=== PATIENT | female | born 1975 | race Caucasian/White ===

== ENCOUNTER 2017-07-01 13:56 | Observation (INO) | payer OTHER ==
[2017-07-01] MEDS ORDERED: NITROGLYCERIN 0.4 MG/TAB SL ONE (14:29)
[2017-07-01] MEDS ORDERED: ASPIRIN 81 MG CHEWABLE TABLET ONE (14:29)
--- NOTE | 2017-07-01 14:34 | EKG ---
Test Date: 2017-07-01 Test Time: 14:10:57 Helpdesk Technician: SANJEEV MEASUREMENT RESULTS: Intervals: Rate: 87 WI: 104 QRSD: 88 QT: 232 QTc: 279 [place]: P: 43 WI: 104 QRS: 60 T: 196 INTERPRETIVE STATEMENTS: Sinus rhythm with short WI Nonspecific ST and T wave abnormality Abnormal ECG Compared to ECG 08/23/2010 15:35:13 Short WI interval now present ST (T wave) deviation now present Electronically Signed On 07-01-17 14:33:35 CDT by Fredrick Mata
--- NOTE | 2017-07-01 15:00 | RAD REPORT ---
EXAM DESCRIPTION: RAD - Chest Single View - 07/01/2017 2:43 pm CLINICAL HISTORY: Chest pain. COMPARISON: None. FINDINGS: Portable technique limits examination quality. The lungs are grossly clear. The heart is normal in size. No displaced fractures.Sternotomy wires not ed. IMPRESSION: No acute intrathoracic process suspected.
[2017-07-01 15:28] LABS: Protime INR 0.94
[2017-07-01 15:30] LABS: Absolute Lymphocytes (CBC) 2.5 K/uL (0.7-4.9); Absolute Monocytes 0.6 K/uL (0.1-1.3); Absolute Neutrophil 5.7 K/uL (1.8-8.0); Eosinophils % 2.6 % (0-4.4); Hematocrit 38.7 % (36.0-45.0); Lymphocytes % 27.1 % (15.3-44.8); MCH 30.7 pg (27.0-35.0); MPV 7.1 fL (7.6-11.3); Monocytes % 6.2 % (3.3-12.3)
[2017-07-01 15:38] LABS: Potassium 3.5 mEq/L (3.6-5.0)
[2017-07-01 15:44] LABS: Albumin 4.2 g/dL (3.2-5.5); Bilirubin Direct 0.1 mg/dL (0-0.2); Bilirubin Total 0.7 mg/dL (0.3-1.2); Magnesium 1.9 mg/dL (1.8-2.5); Protein, Total 7.4 g/dL (6.0-8.3)
[2017-07-01 15:47] LABS: CKMB Creatine Kinase MB 1.7 ng/ml (0.3-4.0)
--- NOTE | 2017-07-01 15:52 | ER ---
Nurse's Notes [facility] Name: Rosa Maria Smith Age: 41 yrs Sex: Female : 1975 Arrival Date: 07/01/2017 Time: 13:58 Bed 15 Private MD: Maxi Christina Diagnosis: Chest pain, unspecified Presentation: 07/01 14:09 Presenting complaint: Patient states: chest pain since 1130, very heavy, radiating into ch neck and R arm, has a hx of CHF after having her child, and has a slight mitral valve leak. had a stress test done my Dr. Whatley about 1.5 yrs ago. Transition of care: patient was not received from another setting of care. Onset of symptoms was July 01, 2017 at 11:30. Initial Sepsis Screen: Does the patient meet any 2 criteria? No. Patient's initial sepsis screen is negative. Does the patient have a suspected source of infection? No. Patient's initial sepsis screen is negative. Care prior to arrival: None. 14:09 Method Of Arrival: Ambulatory 14:09 Acuity: ANNIE 2 Triage Assessment: 14:15 General: Appears in no apparent distress. comfortable, Behavior is calm, cooperative, ch appropriate for age. Pain: Complains of pain in chest. 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 - Social history:: Smoking status: Patient/guardian denies using tobacco, Patient/guardian denies using alcohol, street drugs, The patient lives with family. - Family history:: not pertinent. Screenin:20 Abuse screen: Denies threats or abuse. Nutritional screening: No deficits noted. rb1 Tuberculosis screening: No symptoms or risk factors identified. Fall Risk None identified. Assessment: 14:20 General: Appears uncomfortable, Behavior is calm, cooperative, Denies fever. Pain: rb1 Complains of pain in chest Pain radiates to right side of neck Pain currently is 10 out of 10 on a pain scale. Pain began 1200 today. Neuro: Level of Consciousness is awake, alert, obeys commands, Oriented to person, place, time, situation. Cardiovascular: Capillary refill < 3 seconds is brisk in bilateral fingers. Respiratory: Airway is patent Respiratory effort is even, unlabored, Respiratory pattern is regular, symmetrical. GI: No signs and/or symptoms were reported involving the gastrointestinal system. : No signs and/or symptoms were reported regarding the genitourinary system. Derm: Skin is pink, warm \T\ dry. Musculoskeletal: Range of motion: intact in all extremities. 15:00 Reassessment: Patient appears in no apparent distress at this time. Patient and/or rb1 family updated on plan of care and expected duration. Pain level reassessed. Patient is alert, oriented x 3, equal unlabored respirations, skin warm/dry/pink. Patient states symptoms have improved. 16:00 Reassessment: Patient appears in no apparent distress at this time. No changes from rb1 previously documented assessment. at bedside. 17:00 Reassessment: Patient appears in no apparent distress at this time. Patient and/or rb1 family updated on plan of care and expected duration. Pain level reassessed. Patient is alert, oriented x 3, equal unlabored respirations, skin warm/dry/pink. 17:35 Reassessment: pt. complains of tightness in her chest, sweating with nausea and rb1 vomiting. Provider notified, received order for Zofran 4 mg IVP once and a EKG. 18:33 Reassessment: Patient appears in no apparent distress at this time. Patient and/or rb1 family updated on plan of care and expected duration. Pain level reassessed. Patient is alert, oriented x 3, equal unlabored respirations, skin warm/dry/pink. Patient states feeling better. 18:40 Reassessment: Attempted to call report but NAT Ballard told me to call back after shift rb1 change. I explained that the pt. would not come to the floor until after shift change, but she still didn't want to take report. 19:10 Reassessment: Report received from NAT Biggs. bs1 19:45 Reassessment: Patient appears in no apparent distress at this time. Patient and/or bs1 family updated on plan of care and expected duration. Pain level reassessed. Patient is alert, oriented x 3, equal unlabored respirations, skin warm/dry/pink. Patient states feeling better. Vital Signs: 14:15 BP 144 / 101; Pulse 92; Resp 16; Temp 98.4; Pulse Ox 100% on R/A; Weight 86.18 kg; ch Height 5 ft. 2 in. (157.48 cm); Pain 9/10; 14:30 BP 124 / 94; Pulse 92; Resp 16; Pulse Ox 100% on R/A; rb1 15:30 BP 126 / 114; Pulse 107; Resp 18; Pulse Ox 100% on R/A; rb1 16:23 BP 118 / 79; Pulse 78; Resp 16; Pulse Ox 100% on R/A; mh5 17:35 BP 150 / 92; Pulse 81; Resp 20; Pulse Ox 100% on R/A; mh5 18:04 BP 106 / 67; Pulse 60; Resp 19; Pulse Ox 99% on R/A; Pain 5/10; rb1 18:30 BP 106 / 73; Pulse 70; Resp 16; Pulse Ox 96% ; rb1 19:30 BP 121 / 75; Pulse 78; Resp 17; Temp 97.8(O); Pulse Ox 100% on R/A; Pain 6/10; bs1 14:15 Body Mass Index 34.75 (86.18 kg, 157.48 cm) ED Course: 13:58 Patient arrived in ED. mr 13:59 Maxi Christina MD is Private Physician. mr 14:11 Triage completed. ch 14:15 Arm band placed on left wrist. Patient placed in an exam room. 14:17 Marquis Staley MD is Attending Physician. ma2 14:17 [facility]erma [facility]. cp 14:20 Patient has correct armband on for positive identification. Placed in gown. Bed in low rb1 position. Call light in reach. Side rails up X 1. [employer] on. Pulse ox on. NIBP on. 14:20 Patient maintains SpO2 saturation greater than 95% on room air. rb1 14:25 Missed attempt(s): 22 gauge in left antecubital area. rb1 14:26 EKG done, by durable medical equipment technician. reviewed by Steven Davis MD. tc 14:27 Dian Mercado, RN is Primary Nurse. rb1 14:37 X-ray completed. Portable x-ray completed in exam room. Patient tolerated procedure sw well. 14:42 XRAY Chest (1 view) In Process Unspecified. EDMS 15:10 Missed attempt(s): 22 gauge in right forearm. 24 gauge wrist. mh5 15:16 Inserted saline lock: 20 gauge 22 gauge in right forearm, using aseptic technique. hand, using aseptic technique. Blood collected. 15:51 Rigoberto Valenzuela DO is Hospitalizing Provider. ma2 19:00 Report given to NAT Funk. rb1 20:11 No provider procedures requiring assistance completed. Patient admitted, IV remains in bs1 place. intact. Administered Medications: 14:32 Drug: Nitroglycerin 0.4 mg Route: Sublingual; rb1 15:00 Follow up: Response: No adverse reaction; Marked relief of symptoms; Pain is decreased rb1 14:33 Drug: Aspirin Chewable Tablet 324 mg Route: PO; rb1 15:00 Follow up: Response: No adverse reaction; Marked relief of symptoms rb1 17:44 Not Given (Error in order): Zofran 4 mg IM once rb1 17:45 Drug: Zofran 4 mg Route: IVP; Site: right wrist; rb1 18:05 Follow up: Response: No adverse reaction; Nausea is decreased rb1 Outcome: 15:51 Decision to Hospitalize by Provider. ma2 20:12 Admitted to Tele accompanied by tech, via wheelchair, room 410, with chart, Report bs1 called to Segun Cordon RN 20:12 Condition: stable 20:31 Patient left the ED. bs1 Signatures: Dispatcher [employer] EDMS Rosangela Anaya, RN Neris Xavier ch mr Reyna Masters, computing architect EKG Nadia Welsh Corey, PA PA cp Barber, Rebecca, RN RN Neris Mack [facility] Blessing Royal, NAT RN bs1 Marquis Staley MD MD [facility]
--- NOTE | 2017-07-01 15:52 | EDPHYS ---
Physician Documentation [facility] Name: Rosa Maria Smith Age: 41 yrs Sex: Female : 1975 Arrival Date: 07/01/2017 Time: 13:58 Bed 15 Private MD: Maxi Christina ED Physician Marquis Staley HPI: 07/01 14:31 This 41 yrs old Female presents to ER via Ambulatory with complaints of Chest ma2 Pain, High Blood Pressure. 14:31 The patient or guardian reports chest pain that is located primarily in the substernal ma2 area. Onset: gradually, 2 hour(s) ago. The pain radiates to Associated signs and symptoms: Pertinent positives: None. Pertinent negatives: None. Associated signs and symptoms:. The chest pain is described as a heaviness. Duration: The patient or guardian reports a single episode. Severity of pain: At its worst the pain was severe. The patient has experienced similar episodes in the past. worse with deep breath . 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 - Social history:: Smoking status: Patient/guardian denies using tobacco, Patient/guardian denies using alcohol, street drugs, The patient lives with family. - Family history:: not pertinent. ROS: 14:31 Cardiovascular: Positive for chest pain, Negative for edema, orthopnea, palpitations, ma2 acute changes. 14:31 All other systems are negative. 15:51 Eyes: Negative for injury, pain, redness, and discharge. ma2 Exam: 14:31 Constitutional: This is a well developed, well nourished patient who is awake, alert, ma2 and in no acute distress. Head/Face: Normocephalic, atraumatic. Cardiovascular: Regular rate and rhythm with a normal S1 and S2. No gallops, murmurs, or rubs. Normal PMI, no JVD. No pulse deficits. Respiratory: Lungs have equal breath sounds bilaterally, clear to auscultation and percussion. No rales, rhonchi or wheezes noted. No increased work of breathing, no retractions or nasal flaring. Abdomen/GI: Soft, non-tender, with normal bowel sounds. No distension or tympany. No guarding or rebound. No evidence of tenderness throughout. MS/ Extremity: Pulses equal, no cyanosis. Neurovascular intact. Full, normal range of motion. Vital Signs: 14:15 BP 144 / 101; Pulse 92; Resp 16; Temp 98.4; Pulse Ox 100% on R/A; Weight 86.18 kg; ch Height 5 ft. 2 in. (157.48 cm); Pain 9/10; 14:30 BP 124 / 94; Pulse 92; Resp 16; Pulse Ox 100% on R/A; rb1 15:30 BP 126 / 114; Pulse 107; Resp 18; Pulse Ox 100% on R/A; rb1 16:23 BP 118 / 79; Pulse 78; Resp 16; Pulse Ox 100% on R/A; mh5 17:35 BP 150 / 92; Pulse 81; Resp 20; Pulse Ox 100% on R/A; mh5 18:04 BP 106 / 67; Pulse 60; Resp 19; Pulse Ox 99% on R/A; Pain 5/10; rb1 18:30 BP 106 / 73; Pulse 70; Resp 16; Pulse Ox 96% ; rb1 19:30 BP 121 / 75; Pulse 78; Resp 17; Temp 97.8(O); Pulse Ox 100% on R/A; Pain 6/10; bs1 14:15 Body Mass Index 34.75 (86.18 kg, 157.48 cm) ch MDM: 14:18 Patient medically screened. ma2 14:31 Differential diagnosis: abnormal EKG, acute myocardial infarction, acute pericarditis, ma2 anxiety, coronary artery disease gastroesophageal reflux disease (GERD), herpes zoster. HEART Score: History: Highly Suspicious (2), ECG: Normal (0), Age: < or = 45 years (0), Risk Factors: No Risk Factors Known (0), Troponin: Total Score =. The patient's pulmonary embolism risk score was calculated as follows: No Risks (0 Pts). 15:47 The patient was given aspirin in the Emergency Department. Data reviewed: vital signs, [facility] nurses notes, EMS record. Counseling: I had a detailed discussion with the patient and/or guardian regarding: the historical points, exam findings, and any diagnostic results supporting the discharge/admit diagnosis, the need for further work-up and treatment in the hospital. ED course: discussed with . 07/01 14:18 Order name: Basic Metabolic Panel [facility] 07/01 14:18 Order name: BNP [facility] 07/01 14:18 Order name: CBC with Diff; Complete Time: 15:47 [facility] 07/01 14:18 Order name: Ckmb [facility] 07/01 14:18 Order name: CPK [facility] 07/01 14:18 Order name: LFT's [facility] 07/01 14:18 Order name: Magnesium [facility] 07/01 14:18 Order name: PT-INR; Complete Time: 15:47 [facility] 07/01 14:18 Order name: Ptt, Activated; Complete Time: 15:47 [facility] 07/01 14:18 Order name: Troponin (emerg Dept Use Only); Complete Time: 15:47 [facility] 07/01 14:18 Order name: XRAY Chest (1 view); Complete Time: 15:05 [facility] 07/01 14:18 Order name: EKG; Complete Time: 14:19 [facility] 07/01 14:18 Order name: Cardiac monitoring; Complete Time: 14:33 [facility] 07/01 14:18 Order name: EKG - Nurse/Tech; Complete Time: 14:33 [facility] 07/01 14:18 Order name: IV Saline Lock; Complete Time: 15:20 sc07/01 14:18 Order name: Labs collected and sent; Complete Time: 15:20 [facility] 07/01 14:18 Order name: O2 Per Protocol; Complete Time: 14:33 sc07/01 14:18 Order name: O2 Sat Monitoring; Complete Time: 14:33 [facility] 07/01 18:44 Order name: EKG; Complete Time: 18:45 ag Administered Medications: 14:32 Drug: Nitroglycerin 0.4 mg Route: Sublingual; rb1 15:00 Follow up: Response: No adverse reaction; Marked relief of symptoms; Pain is decreased rb1 14:33 Drug: Aspirin Chewable Tablet 324 mg Route: PO; rb1 15:00 Follow up: Response: No adverse reaction; Marked relief of symptoms rb1 17:44 Not Given (Error in order): Zofran 4 mg IM once rb1 17:45 Drug: Zofran 4 mg Route: IVP; Site: right wrist; rb1 18:05 Follow up: Response: No adverse reaction; Nausea is decreased rb1 Disposition: 07/01/17 15:51 Hospitalization ordered by Rigoberto Valenzuela for Observation. Preliminary diagnosis is Chest pain, unspecified. - Bed requested for Telemetry/MedSurg (observation). - Status is Observation. bs1 - Condition is Stable. - Problem is new. - Symptoms are unchanged. UTI on Admission? No Signatures: Dispatcher [employer] EDMS Rosangela Anaya, RN NAT Sara Olmedo RN RN Dian Mercado, Blessing Meek RN, RN RN bs1 Marquis Staley MD MD sc2
--- NOTE | 2017-07-01 17:18 | P.HP ---
Certification for Inpatient Patient admitted to: Observation With expected LOS: <2 Midnights Patient will require the following post-hospital care: None Practitioner: I am a practitioner with admitting privileges, knowledge of patient current condition, hospital course, and medical plan of care. Services: Services provided to patient in accordance with Admission requirements found in Title 42 Section 412.3 of the Code of Federal Regulations Patient History Date of Service: 07/01/17 Reason for admission: chest pain History of Present Illness: 41 year old female with hypothyroidism who presented with acute onset of sub sternal chest pain which started around 11 am this am while at work.She describes the pain as a tightness with some crushing component to it.Pain continued for hours radiating to the right side of her neck.Pain said to be moderate to severe in intensity.No known aggravating factor.Pain improved after she got some nitro in the ER.Patient denies having similar pain in the past. Family history of heart disease in the mother and maternal grandmother.Patient smoked for over 10 years but quit about 4 years ago. - Past Medical/Surgical History Diabetic: No -: hypothyroid Past Surgical History: Reviewed- Non-Contributory - Family History Mother -: Heart disease - Social History Smoking Status: Former smoker Review of Systems 10-point ROS is otherwise unremarkable Physical Examination - Physical Exam General: Alert, In no apparent distress, Oriented x3 HEENT: Atraumatic, Normocephalic, PERRLA Neck: Supple, JVD not distended, No Thyromegaly, No LAD Respiratory: Clear to auscultation bilaterally, Normal air movement Cardiovascular: No edema, Normal pulses, Regular rate/rhythm, Normal S1 S2, No gallops, No rubs, No murmurs Gastrointestinal: Normal bowel sounds, Soft and benign, Non-distended, W/out hepatosplenomegaly, No ascites, No tenderness, No masses, No rebound, No guarding Musculoskeletal: No clubbing, No swelling, No contractures, No erythema, No tenderness, No warmth Neurological: Normal affect - Studies Laboratory Data (last 24 hrs) 07/01/17 15:10: PT 11.1, INR 0.94, APTT 29.4 07/01/17 15:10: WBC 9.1, Hgb 13.5, Hct 38.7, Plt Count 466 H 07/01/17 15:10: B-Natriuretic Peptide 62 05/01/18 15:10: Sodium 137, Potassium 3.5 L, BUN 6, Creatinine 0.73, Glucose 91 , Magnesium 1.9, Total Bilirubin 0.7, AST 22, ALT 12, Alkaline Phosphatase 75 Assessment and Plan - Problems (Diagnosis) (1) Chest pain Current Visit: Yes Status: Acute Plan: patient with high risk factors EKG with no ST changes, 1st set of enzyme negative will place on observation obtain serial enzymes and EKG NPO midnight for stress test Dr Lamb consulted nitro, morphine prn ASA daily (2) Hypothyroid Current Visit: Yes Status: Acute Plan: resume synthroid - Advance Directives Does patient have a Living Will: No Does patient have a Durable POA for Healthcare: No
[2017-07-01] MEDS ORDERED: ONDANSETRON 4 MG/2 ML VIAL ONE (17:33)
[2017-07-01] MEDS ORDERED: ACETAMINOPHEN 500 MG TAB PO PRN (20:32)
[2017-07-01] MEDS ORDERED: MORPHINE 4 MG/ML SYR IV PRN (20:32)
[2017-07-01] MEDS ORDERED: NITROGLYCERIN 0.4 MG/TAB SL PRN (20:32)
[2017-07-01] MEDS ORDERED: ONDANSETRON 4 MG/2 ML VIAL IV PRN (20:48)
[2017-07-01 21:13] LABS: CKMB Creatine Kinase MB 1.3 ng/ml (0.3-4.0)
--- NOTE | 2017-07-01 22:36 | EKG ---
Test Date: 2017-07-01 Test Time: 17:50:11 Waist Cutter: ILEANA MEASUREMENT RESULTS: Intervals: Rate: 62 OH: 112 QRSD: 90 QT: 414 QTc: 420 [place]: P: 17 OH: 112 QRS: 42 T: 57 INTERPRETIVE STATEMENTS: Normal sinus rhythm Normal ECG Compared to ECG 07/01/2017 14:10:57 Short [place] interval no longer present ST (T wave) deviation no longer present Electronically Signed On 07-01-17 22:35:43 CDT by Lance Lamb
[2017-07-01 23:30] VITALS: BMI 34.7
[2017-07-02 05:32] LABS: CKMB Creatine Kinase MB 1.2 ng/ml (0.3-4.0); Potassium 3.9 mEq/L (3.6-5.0)
[2017-07-02] MEDS ORDERED: Morphine 2 MG/2 ML SYR IV PRN (07:47)
[2017-07-02] MEDS ORDERED: ASPIRIN EC 81 MG TAB PO SCH (09:00)
[2017-07-02] MEDS ORDERED: ENOXAPARIN 40 MG/0.4 ML SQ SCH (09:00)
[2017-07-02] MEDS ORDERED: PANTOPRAZOLE 40MG TABLET PO ONE (10:32)
[2017-07-02] MEDS ORDERED: LIDOCAINE 1% 20 ML MDV ONE (12:11)
[2017-07-02] MEDS ORDERED: NICARDIPINE HCL 25 MG/10 ML IV ONE (12:12)
[2017-07-02] MEDS ORDERED: HEPARIN 5000 UNIT/ML 1 ML VIAL ONE (12:12)
[2017-07-02] MEDS ORDERED: HEPA 1000U/500MLS 2,000 UNIT/1,000 ML BAG IV ONE (12:18)
[2017-07-02] MEDS ORDERED: MIDAZOLAM HCL 2 MG/2 ML INJ ONE (12:43)
[2017-07-02] MEDS ORDERED: NA CHLORIDE 0.9% 500 ML ONE (12:43)
[2017-07-02] MEDS ORDERED: FENTANYL CITR 100 MCG/2 ML ONE (12:43)
--- NOTE | 2017-07-02 13:01 | ECHO ---
HEIGHT: 5 ft 2 in WEIGHT: 190 lb 0 oz DATE OF STUDY: 07/02/[address]: 2-DIMENSIONAL: YES M.MODE: YES DOPPLER: YES COLOR FLOW: YES TDS: NO PORTABLE: NO DEFINITY: NO BUBBLE STUDY: NO DIAGNOSIS: CHEST PAIN CARDIAC HISTORY: CATHERIZATION: NO SURGERY: YES PROSTHETIC VALVE: NO PACEMAKER: NO MEASUREMENTS (cm) DIASTOLIC (NORMALS) SYSTOLIC (NORMALS) IVSd 0.7 (0.6-1.2) LA Diam 2.7 (1.9-4.0) LVEF 54% LVIDd 4.0 (3.5-5.7) LVIDs 2.9 (2.0-3.5) %FS 27% LVPWd 1.0 (0.6-1.2) Ao Diam 2.6 (2.0-3.7) 2 DIMENSIONAL ASSESSMENT: RIGHT ATRIUM: NORMAL LEFT ATRIUM: NORMAL RIGHT VENTRICLE: NORMAL LEFT VENTRICLE: NORMAL TRICUSPID VALVE: NORMAL MITRAL VALVE: NORMAL PULMONIC VALVE: NORMAL AORTIC VALVE: NORMAL PERICARDIAL EFFUSION: NONE AORTIC ROOT: NORMAL LEFT VENTRICULAR WALL MOTION: NORMAL DOPPLER/COLOR FLOW: NORMAL COMMENTS: NORMAL 2D ECHOCARDIOGRAM WITH DOPPLER. TECHNOLOGIST: ABBEY BENITO
--- NOTE | 2017-07-02 13:11 | TREADMILL ---
70% H.R.: 125 85% H.R.: 151 90% H.R.: 160 100% H.R.: 178 DX: CHEST PAIN Date of Study: 07/02/2017 Ht: 5 2 Wt: 190 lb 0 oz Consulting Physician: VENECIA MEDICATIONS: NONE HISTORY: 39 YEAR OLD FEMALE WITH COMPLAINT OF CHEST PAIN. HISTORY OF HYPOTHYROIDISM, AORTIC VALVE DEFECT . PHYSICIAL EXAMINATION: RESTING B.P.: 143/102 RESTING H.R.: 79 RESTING EKG: PROTOCOL: ROUTINE OSWALD EXERCISE TIME: 7:00 MAXIMUM HEART RATE: 169 % OF PREDICTED B.P. AT PEAK STRESS: H.R. AT 1 MINUTE POST EXERCISE: 142 IMPRESSION: ROUTINE OSWALD STOPPED DUE TO FATIGUE AND TARGET HEART RATE REACHED. STATES CHEST PAIN 5/10 PRIOR TO AND DURING THE TEST. OCCASIONAL PREMATURE VENTRICULAR COMPLEXES NOTED IN RECOVERY. NO VENTRICULAR TACHYCARDIA, NO SUPRAVENTRICULAR TACHYCARDIA. ST DEPRESSION WITH STENOSIS, ABNORMAL STRESS TEST COMPLIANT WITH ISCHEMIA.
--- NOTE | 2017-07-02 15:00 | CON ---
Chief Complaint: Chest pain. History Of Present Illness: Ms. Smith has been having chest pain for about 12 hours. There is no ch densie in her EKG or enzymes. Those were completely normal. Ms. Smith has never had coronary heart di sease. At a very young age, she had repair of an atrial septal defect and a valvuloplasty of a pulmo raymon valve that was said to be mildly stenotic. There was no artificial valve or balloon. She had so me mesh material sewed into her atrial septum. Since then, she has been fine. She gets serial echoc ardiograms at [facility] where the surgery was done. She does not use tobacco. She did until 4 years ago. She does not have diabetes or dyslipidemia. She has hypothyroidism because her thyroid was removed for Graves disease, and she has asthma. Outpatient medications are Singulair, levothyro xine, and Xyzal. She is allergic to cefdinir. Physical Examination: General: 5 feet 2 inches, 190 pounds. Alert, oriented, pleasant, not in distress. Lungs: Clear. Cardiac: Within normal limits. Abdomen: Soft. Extremities: Normal. No cyanosis, clubbing, or edema. Laboratory Data: Her electrocardiogram is normal. I recommend we do an echo and stress test. If slick cazares passes those, we should look for other causes of her pain. I would be concerned, she may have a GI cause. Apparently, there has been a hysterectomy and gallbladder surgery in the past, so we are not too concerned that it is a gallbladder problem. Thank you very much for your kind referral of Ms. Smith. I will follow her with you. HERMILA Voice ID: [id number] Report ID: [id number]
[2017-07-02 16:07] VITALS: BP 113/59
[2017-07-02 16:30] VITALS: TEMP 99.2
[2017-07-02] MEDS ORDERED: PANTOPRAZOLE 40MG TABLET PO SCH (16:30)
--- NOTE | 2017-07-02 17:06 | P.DS ---
Admission Date: 07/01/17 Discharge Date: 07/02/17 Disposition: ROUTINE DISCHARGE Discharge Condition: FAIR Reason for Admission: chest pain Consultations: Dr Lamb Procedures: stress test heart cath - Problems (1) Chest pain Onset Date: 07/02/17 Current Visit: Yes Status: Acute (2) Hypothyroid Onset Date: 07/02/17 Current Visit: Yes Status: Acute Brief History of Present Illness: 41 year old female with hypothyroidism who presented with acute onset of sub sternal chest pain which started around 11 am this am while at work.She describes the pain as a tightness with some crushing component to it.Pain continued for hours radiating to the right side of her neck.Pain said to be moderate to severe in intensity.No known aggravating factor.Pain improved after she got some nitro in the ER.Patient denies having similar pain in the past. Family history of heart disease in the mother and maternal grandmother.Patient smoked for over 10 years but quit about 4 years ago. Hospital Course: Patient has serial enzymes and EKG which came back negative.She had a negative stress test and proceeded to have CATH which revealed clean coronaries.Her pantoprazole was adjusted to BID. patient remained stable and was advised to follow up wto follow up with GI for further work up. Vital Signs/Physical Exam: Temp Pulse Resp BP Pulse Ox 99.2 F 102 H 16 113/59 L 96 07/02/17 16:00 07/02/17 16:06 07/02/17 16:06 07/02/17 16:06 07/02/17 16:00 General: Alert, In no apparent distress, Oriented x3 HEENT: Atraumatic, Normocephalic, PERRLA Neck: Supple, JVD not distended, No Thyromegaly, No LAD Respiratory: Clear to auscultation bilaterally, Normal air movement Cardiovascular: No edema, Normal pulses, Regular rate/rhythm, Normal S1 S2, No gallops, No rubs, No murmurs Gastrointestinal: Normal bowel sounds, Soft and benign, Non-distended, W/out hepatosplenomegaly, No ascites, No tenderness, No masses, No rebound, No guarding Musculoskeletal: No clubbing, No swelling, No contractures, No erythema, No tenderness, No warmth Neurological: Normal strength at 5/5 x4 extr Laboratory Data at Discharge: WBC 9.1 K/uL (4.3-10.9) 07/01/17 15:10 Hgb 13.5 g/dL (12.0-15.0) 07/01/17 15:10 Hct 38.7 % (36.0-45.0) 07/01/17 15:10 Plt Count 466 K/uL (152-406) H 07/01/17 15:10 PT 11.1 SECONDS (9.5-12.5) 07/01/17 15:10 INR 0.94 07/01/17 15:10 APTT 29.4 SECONDS (24.3-36.9) 07/01/17 15:10 Sodium 138 mEq/L (135-145) 07/02/17 04:06 Potassium 3.9 mEq/L (3.6-5.0) 07/02/17 04:06 BUN 8 mg/dL (6-20) 07/02/17 04:06 Creatinine 0.75 mg/dL (0.44-1.00) 07/02/17 04:06 Glucose 96 mg/dL (65-120) 07/02/17 04:06 Magnesium 1.9 mg/dL (1.8-2.5) 07/01/17 15:10 Total Bilirubin 0.7 mg/dL (0.3-1.2) 07/01/17 15:10 AST 22 IU/L (10-42) 07/01/17 15:10 ALT 12 IU/L (10-60) 07/01/17 15:10 Alkaline Phosphatase 75 IU/L (42-121) 07/01/17 15:10 Troponin I < 0.03 ng/mL (<0.03) 07/02/17 04:06 B-Natriuretic Peptide 62 pg/ml (<=100) 07/01/17 15:10 Triglycerides 105 mg/dL (35-160) 07/01/17 20:40 Cholesterol 184 mg/dL (<200) 07/01/17 20:40 HDL Cholesterol 65 mg/dL (29-89) 07/01/17 20:40 Cholesterol/HDL Ratio 2.83 07/01/17 20:40 Home Medications: RX: Levocetirizine Dihydrochloride [Xyzal] 5 mg PO DAILY 07/01/17 RX: Levothyroxine [Synthroid*] 0.1 mg PO DAILY 07/01/17 RX: Montelukast [Singulair*] 10 mg PO DAILY PRN 07/01/17 RX: Pantoprazole [Protonix Tab*] 40 mg PO BIDAC 30 Days #60 tab 07/02/17 New Medications: RX: Pantoprazole [Protonix Tab*] 40 mg PO BIDAC 30 Days #60 tab Patient Discharge Instructions: return to ER with new or worsening symptoms Diet: Regular Activity: Ad mary Physician Review: Patient Assessed, Agree with Above Assessment and Plan Time spent managing pt's care (in minutes): 25
[2017-07-02 19:48] VITALS: O2SAT 100
--- NOTE | 2017-07-03 01:00 | OP ---
Surgeon: Lance Lamb MD Pan Shaker: Metal Polisher And Buffer Apprentice: Sofi Greene. Procedure: Left heart catheterization, coronary left ventricular angiography. Indication: Chest pain, abnormal stress test. Findings: The patient has normal coronary arteries, normal ejection fraction. Normal pressures. No abnormalities were found. Procedure In Detail: The patient was brought to the cardiac photo lab specialist in a fasting state, sedated wit h Versed and fentanyl. She gave informed consent. She was prepared and draped in the usual sterile fashion, 1% lidocaine was used to anesthetize the tissues over the right radial artery. It was enter ed using a 21-gauge needle, 0.021 inch diameter guidewire was used to cannulate the artery, modified Seldinger technique, 6-St [place]ian radial sheath. We flushed the sheath and gave a radial cocktail consis ting of nicardipine, heparin, nitroglycerin. We guided a TIG catheter to the ascending aorta using f luoroscopy and a Terumo Glidewire with a short radius J-tip. Wire was removed. We were able to phill ogram the right and left coronaries in multiple views, did a left ventriculogram and take pressures. At the end of the procedure the catheter was withdrawn with the J-wire in place. The sheath was flu shed, removed, and the arteriotomy closed using a TR band. Complications from the procedure, none. Estimated Blood Loss: 5 cc. MARÍA ELENA/MYRIAM Voice ID: [id number] Report ID: [id number]
== END 2017-07-02 20:15 | disposition home or self-care (01) ==
LOC: ER 13:56 → ERHOLD 15:53 → 4TH 20:10
PROVIDERS: ADMIT Internal Medicine; ATTEND Internal Medicine
PROC: 4A023N7 Measurement of Cardiac Sampling and Pressure, Left Heart, Percutaneous Approach (ICD-10-PCS; principal; 2017-07-02)
PROC: B201YZZ Plain Radiography of Multiple Coronary Arteries using Other Contrast (ICD-10-PCS; 2017-07-02)
PROC: B205YZZ Plain Radiography of Left Heart using Other Contrast (ICD-10-PCS; 2017-07-02)
DX: R07.9 Chest pain, unspecified (principal); E03.9 Hypothyroidism, unspecified; Z87.891 Personal history of nicotine dependence
CPT/HCPCS: 36415; 71045; 80048; 80061; 80076; 82550; 82553; 83735; 83880; 84484; 85025; 85610; 85730; 93005; 93017; 93306; 93458; 94760; 96374; 99285; C1893; G0378; J1644; J1650; J2250; J2405; J3010